=== PATIENT | female | born 1985 | race Caucasian/White ===

== ENCOUNTER 2021-01-22 07:36 | Inpatient (IN) ==
[2021-01-22] MEDS ORDERED: PENICILLIN G POTASSIUM 3 MU in DEXTROSE 5% 100 ML IV PRN (07:49)
[2021-01-22] MEDS ORDERED: OXYTOCIN 30 UNITS/500 ML BAG IV PRN ×3 (07:49→18:45)
[2021-01-22] MEDS ORDERED: DINOPROSTONE 10 MG INSERT PV ONE (08:00)
[2021-01-22] MEDS ORDERED: PATIENT'S HEIGHT AND/OR WEIGHT NEEDED SCH (08:00)
[2021-01-22] MEDS ORDERED: PENICILLIN G POTASSIUM 6 MU in DEXTROSE 5% 250 ML IV ONE (08:00)
[2021-01-22 08:18] LABS: Hematocrit (blood only) 36.7 % (37-47); Hemoglobin 12.2 g/dL (12.0-16.0); Mean Corpuscular Hemoglobin 29.3 pg (25-34); Mean Corpuscular Hgb Conc 33.2 g/dL (32-36); Mean Corpuscular Volume 88.2 fL (80-100); Mean Platelet Volume 11.2 fL (7.4-10.4); Platelet Count 274 K/uL (130-400); RDW Coefficient of Variation 15.6 % (11.5-14.5); RDW Standard Deviation 49.9 fL (36.4-46.3); Red Blood Count 4.16 M/uL (4.2-5.4)
[2021-01-22 08:51] LABS: Albumin Level 2.5 gm/dl (3.4-5.0); BUN Creatinine Ratio 12.4 (10-20); Calcium 9.4 mg/dl (8.5-10.1); Creatinine Clr Calc Pharmacy 130.6 ml/min; Est GFR (African American) 110.8 ml/min; Est GFR (Non-African American) 95.6 ml/min; Potassium 3.8 mmol/L (3.5-5.1)
[2021-01-22 08:54] LABS: Albumin Globulin Ratio 0.6 (0.9-2); Bilirubin,Total 0.2 mg/dl (0.2-1); Total Protein 6.5 gm/dl (6.4-8.2)
[2021-01-22] MEDS ORDERED: LABETALOL HCL 100 MG TAB PO ONE (10:02)
--- NOTE | 2021-01-22 10:02 | History & Physical Report ---
Date of Service January 22, 2021 Assessment & Plan (1) Elevated blood pressure affecting in third trimester, antepartum: (2) Pre-eclampsia added to pre-existing hypertension: Plan: 35-year-old -0-0-1 at 37 weeks of gestation scheduled for induction of labor for preeclampsia without severe features, has been labetalol 200 mg twice a day and now with proteinuria, Elevated blood pressures, asymptomatic, heart rate reassuring, GBS positive, Cervix unfavorable, Plan to admit, monitor, labs, Cervidil for cervical ripening and antihypertensives for blood pressure control. Admission and Anticipated Discharge Date Admission Date: January 22, 2021 History of Present Illness Primary Care Provider: Matilde Terry DO Patient is a 35-year-old -0-0-1 at 37 weeks of gestation who was scheduled for induction of labor for preeclampsia without severe features. Her blood pressures have been elevated and 24-hour urine protein was 371 MG on January 06, 2021. She has been on labetalol 200 mg twice a day and her liver enzymes and platelets have been normal. She denies headaches, change in her vision, nausea vomiting, epigastric or right upper quadrant pain. She denies chest pain, shortness of breath, fever or chills. She denies contractions, leakage of fluid, vaginal bleeding. She reports good movements. Her has been complicated by, 1) AMA, first trimester screening NIPT test was low risk 2) Hypothyroidism during , 3) preeclampsia without severe features, 4) Anxiety during , 5) obesity, class I, 6) GBS positive Allergies Allergy/AdvReac Type Severity Reaction Status Date / Time No Known Allergies Allergy Unverified 11/15/14 13:51 Home Medications Medication Instructions Recorded Confirmed Type Multivit/Min/Iron/Fol Ac/Pren 1 tab PO DAILY #0 tab 11/15/14 01/22/21 History ( Vitamin) Sertraline (Zoloft) 100 mg PO DAILY #0 tab 11/15/14 01/22/21 History labetalol 100 mg tablet 200 mg PO BID 01/07/21 01/22/21 History levothyroxine 25 mcg tablet 25 mcg PO DAILY 01/07/21 01/22/21 History Patient History Medical History (Updated 01/22/21 @ 10:00 by Sofy Merrill MD) Anxiety Depression Gestational hypertension Hypothyroid Migraines Obesity Vitamin D deficiency Surgical History History of mandibular surgery History of mandibular surgery Social History Smoking Status: Never smoker Hx Alcohol Use: No Hx Substance Use: No Preferred Language: Puerto Rican Communication Ability: Effective Beliefs That Will Affect Care: None marital status: marital status details: Adalberto Current Living Situation: Family Current Living Situation Comment: Lives with and 6 yo son current occupational status: employed current occupation: [employer] Other Information That Helps Us Care for You: No Feels Safe at Home: Yes Safety Concerns: Feels Safe At This Time Dental Care, Regularly: Yes OB History Full-term in 2015 by myself [employer] History History of STDs, denies any history of herpes, chlamydia, gonorrhea Review of Systems as per Subjective / HPI Physical Exam Constitutional: well developed and well nourished Comfortable, not in acute distress Gastrointestinal (Abdomen): normal bowel sounds, soft, nontender, no hepatosplenomegaly (Gravid) Genitourinary: normal external appearance OB Exam Abdomen: + vertex Manual OB Exam: + cervical dilation 2 cm, + cervical effacement 30% and + station high OB Exam Monitor Tracing: + external uterine monitor used and + category I Results & Data ([facility]) Vital Signs (Past 12 Hours) Vital Signs Temp Pulse Resp BP 01/22/21 08:52 86 159/90 H 01/22/21 08:50 82 181/102 H 01/22/21 08:08 36.5 C 20 01/22/21 07:50 36.5 C 83 20 164/103 H Laboratory Results Lab Results 01/22/21 01/22/21 01/22/21 Range/Units 07:54 07:54 08:07 WBC 7.90 (4.8-10.8) K/uL RBC 4.16 L (4.2-5.4) M/uL Hgb 12.2 (12.0-16.0) g/dL Hct 36.7 L (37-47) % MCV 88.2 (80-100) fL MCH 29.3 (25-34) pg MCHC 33.2 (32-36) g/dL RDW Std Deviation 49.9 H (36.4-46.3) fL RDW Coeff of Kyle 15.6 H (11.5-14.5) % Plt Count 274 (130-400) K/uL MPV 11.2 H (7.4-10.4) fL Sodium (136-145) mmol/L Potassium (3.5-5.1) mmol/L Chloride (98-107) mmol/L Carbon Dioxide (21-32) mmol/L Anion Gap (3-11) BUN (7-18) mg/dl Creatinine (0.6-1.2) mg/dl Est Cr Clr Drug Dosing ml/min Est GFR ( Amer) ml/min Est GFR (Non-Af Amer) ml/min BUN/Creatinine Ratio (10-20) Glucose (70-99) mg/dl Calcium (8.5-10.1) mg/dl Total Bilirubin (0.2-1) mg/dl AST (15-37) U/L ALT (12-78) U/L Alkaline Phosphatase (45-117) U/L Total Protein (6.4-8.2) gm/dl Albumin (3.4-5.0) gm/dl Globulin (2.5-4.0) gm/dl Albumin/Globulin Ratio (0.9-2) COVID-19 Eval Order Covid19 [facility] SARS-CoV-2, RNA, NAAT NEGATIVE (NEGATIVE) 01/22/21 Range/Units 08:07 WBC (4.8-10.8) K/uL RBC (4.2-5.4) M/uL Hgb (12.0-16.0) g/dL Hct (37-47) % MCV (80-100) fL MCH (25-34) pg MCHC (32-36) g/dL RDW Std Deviation (36.4-46.3) fL RDW Coeff of Kyle (11.5-14.5) % Plt Count (130-400) K/uL MPV (7.4-10.4) fL Sodium 136 (136-145) mmol/L Potassium 3.8 (3.5-5.1) mmol/L Chloride 108 H (98-107) mmol/L Carbon Dioxide 18 L (21-32) mmol/L Anion Gap 10.0 (3-11) BUN 10 (7-18) mg/dl Creatinine 0.79 (0.6-1.2) mg/dl Est Cr Clr Drug Dosing 130.6 ml/min Est GFR ( Amer) 110.8 ml/min Est GFR (Non-Af Amer) 95.6 ml/min BUN/Creatinine Ratio 12.4 (10-20) Glucose 137 H (70-99) mg/dl Calcium 9.4 (8.5-10.1) mg/dl Total Bilirubin 0.2 (0.2-1) mg/dl AST 18 (15-37) U/L ALT 27 (12-78) U/L Alkaline Phosphatase 132 H (45-117) U/L Total Protein 6.5 (6.4-8.2) gm/dl Albumin 2.5 L (3.4-5.0) gm/dl Globulin 4.0 (2.5-4.0) gm/dl Albumin/Globulin Ratio 0.6 L (0.9-2) COVID-19 Eval Order SARS-CoV-2, RNA, NAAT (NEGATIVE)
[2021-01-22] MEDS: LACTATED RINGER'S 1,000 ML IV PRN ×3 (11:28→18:34)
[2021-01-22] MEDS ORDERED: BUTORPHANOL TARTRATE 1 MG/ML VIAL IV ONE (12:02)
--- NOTE | 2021-01-22 12:23 | Obstetrical Progress Note ---
Date of Service January 22, 2021 Assessment & Plan Admission and Anticipated Discharge Date Admission Date: January 22, 2021 Subjective Patient is reevaluated. She has been feeling contractions every 1 to 2 minutes. she has been painful and desires pain medication. Vaginal exam, cervix is 3 to 4 cm dilated, 40% effaced, head at -3 station with a tight bag. Cervidil was removed due to hyperstimulation. heart rate is reassuring, Blood pressures are elevated, patient is asymptomatic. She received 200 mg of labetalol at home and another 100 mg here this morning. Plan to continue with labetalol and monitor closely. All questions were answered. Results & Data ([facility]) Vital Signs (Past 12 Hours) Vital Signs Temp Pulse Resp BP 01/22/21 12:02 83 180/92 H 01/22/21 11:07 84 18 154/92 H 01/22/21 10:49 80 174/96 H 01/22/21 10:48 36.8 C 20 01/22/21 09:53 81 162/96 H 01/22/21 08:52 86 159/90 H 01/22/21 08:50 82 181/102 H 01/22/21 08:08 36.5 C 20 01/22/21 07:50 36.5 C 83 20 164/103 H
[2021-01-22] MEDS ORDERED: LABETALOL HCL 200 MG TAB PO SCH (12:25)
[2021-01-22] MEDS ORDERED: hydrALAZINE HCL 20 MG/ML VIAL IV ONE (14:26)
[2021-01-22] MEDS ORDERED: SODIUM CHLORIDE 0.9% INJ 10 ML VIAL ONE (14:57)
[2021-01-22] MEDS ORDERED: BUPIVACAINE 0.25% 30 ML VIAL ONE (14:57)
[2021-01-22] MEDS ORDERED: ePHEDrine sulfate 50 MG/ML AMP ONE (14:57)
[2021-01-22] MEDS ORDERED: fentaNYL 2MCG/ML ROPIVACAINE 1.25MG/ML 100 ML BAG EPI ONE (14:58)
[2021-01-22] MEDS ORDERED: fentaNYL citrate 100 MCG/2 ML VIAL ONE (14:58)
[2021-01-22] MEDS ORDERED: NALOXONE HCL 1 MG in SODIUM CHLORIDE 0.9% 1000ML 1,000 ML IV PRN (15:12)
[2021-01-22] MEDS ORDERED: NALOXONE HCL 0.4 MG/1 ML VIAL/CARP IV PRN (15:12)
[2021-01-22] MEDS ORDERED: fentaNYL 2MCG/ML ROPIVACAINE 1.25MG/ML 100 ML BAG EPI PRN (15:12)
[2021-01-22] MEDS ORDERED: ePHEDrine sulfate 50 MG/ML AMP IV PRN (15:12)
[2021-01-22] MEDS ORDERED: diphenhydrAMINE 50 MG/ML VIAL IV PRN (15:12)
[2021-01-22] MEDS ORDERED: NALBUPHINE HCL INJ 10 MG/ML AMP IV PRN (15:12)
[2021-01-22] MEDS ORDERED: ONDANSETRON INJ 2 MG/ML 2 ML VIAL IV PRN (15:12)
--- NOTE | 2021-01-22 15:31 | Anesthesiology Consultation ---
Date of Service January 22, 2021 Assessment & Plan (1) Encounter for pre-operative examination: Chart Review Chart Review: Patient NOT seen in Pre Admission Testing and Acceptable Risk for Labor Epidural Consults Requested none History Height/Weight Height: 5 ft 10 in Weight: 109.316 kg Allergies Allergy/AdvReac Type Severity Reaction Status Date / Time No Known Allergies Allergy Unverified 11/15/14 13:51 Medications Home Medications Medication Instructions Recorded Confirmed Last Taken Multivit/Min/Iron/Fol Ac/Pren 1 tab PO DAILY #0 tab 11/15/14 01/22/21 01/21/21 ( Vitamin) Sertraline (Zoloft) 100 mg PO DAILY #0 tab 11/15/14 01/22/21 01/22/21 07:30 labetalol 100 mg tablet 200 mg PO BID 01/07/21 01/22/21 01/22/21 07:20 levothyroxine 25 mcg tablet 25 mcg PO DAILY 01/07/21 01/22/21 01/22/21 06:00 Active Medications Generic Name Dose Route Start Last Admin Trade Name Lennie PRN Reason Stop Dose Admin Lactated Ringer's 1,000 mls @ 150 mls/hr 01/22/21 07:49 01/22/21 15:10 Lr IV 01/24/21 07:48 999 mls/hr .[id number] PRN Administration L&D Protocol Protocol Penicillin G Potassium 3 mu/ 106 mls @ 100 mls/hr 01/22/21 07:49 01/22/21 14:49 Dextrose IV 02/01/21 07:48 100 mls/hr Q4H PRN Administration Give until delivery Labetalol HCl 200 mg 01/22/21 12:25 01/22/21 12:58 Labetalol Hcl 200 Mg Tab PO 02/21/21 12:24 200 mg TID TANVIR Administration Past Medical History Medical History Anxiety Depression Gestational hypertension Hypothyroid Migraines Obesity Vitamin D deficiency Exercise / Class Metabolic Activity II 4-5 Yardwork/Stairs/Walk up hill Past Surgical History Surgical History History of mandibular surgery History of mandibular surgery Past Anesthesia History No Hx of Anesthesia Complications and No Family Hx of Anesthesia Complications History of PONV No Hx of PONV and No Hx of Motion Sickness Social History Smoking Status: Never smoker Hx Alcohol Use: No Hx Substance Use: No Physical Exam Vital Signs Last Vital Signs Temp 36.5 C 01/22/21 14:55 Pulse 75 01/22/21 15:10 Resp 20 01/22/21 14:55 BP 169/91 H 01/22/21 15:09 Pulse Ox 98 01/22/21 15:10 Testing Laboratory Results 01/22/21 08:07 01/22/21 08:07
[2021-01-22] MEDS ORDERED: NIFEdipine EXTENDED REL 30 MG TABCR PO STA (17:10)
[2021-01-22] MEDS ORDERED: MAG SULFATE 4GM BOLUS FROM BAG IV ONE (17:14)
--- NOTE | 2021-01-22 17:14 | Obstetrical Progress Note ---
Date of Service January 22, 2021 Assessment & Plan Admission and Anticipated Discharge Date Admission Date: January 22, 2021 Subjective She received epidural and comfortable now. She felt a gush of fluid leakage earlier. Vaginal exam, perineum and under sheets are wet, cervix is 45 cm dilated, 50% effaced head at -3 station, unable to feel amniotic bag which was tight earlier. I can only feel scalp skin suggesting spontaneous rupture of membranes. Patient has received 2 doses of penicillin already. Blood pressures are still elevated despite labetalol p.o., IV hydralazine. Plan to start Procardia XL and IV magnesium for seizure prophylaxis. Continue to monitor closely. Results & Data ([facility]) Vital Signs (Past 12 Hours) Vital Signs Temp Pulse Resp BP Pulse Ox 01/22/21 17:06 71 168/92 H 01/22/21 17:05 36.8 C 75 18 97 01/22/21 17:00 70 99 01/22/21 16:55 66 98 01/22/21 16:50 64 173/85 H 98 01/22/21 16:45 65 98 01/22/21 16:40 72 98 01/22/21 16:36 64 159/81 H 01/22/21 16:35 65 98 01/22/21 16:30 65 98 01/22/21 16:25 66 98 01/22/21 16:20 71 18 142/69 H 98 01/22/21 16:15 67 98 01/22/21 16:10 68 98 01/22/21 16:05 67 98 01/22/21 16:02 67 18 155/90 H 01/22/21 16:00 67 18 156/89 H 98 01/22/21 15:58 66 150/90 H 01/22/21 15:56 70 18 156/91 H 01/22/21 15:55 66 98 01/22/21 15:54 66 156/91 H 01/22/21 15:52 67 156/89 H 01/22/21 15:50 68 18 159/88 H 99 01/22/21 15:49 18 01/22/21 15:48 71 18 162/93 H 01/22/21 15:46 68 18 157/92 H 01/22/21 15:45 70 99 01/22/21 15:44 69 18 156/86 H 01/22/21 15:43 68 18 156/89 H 01/22/21 15:40 68 143/66 H 99 01/22/21 15:38 67 18 159/76 H 01/22/21 15:36 68 155/72 H 01/22/21 15:35 69 99 01/22/21 15:34 72 164/87 H 01/22/21 15:32 73 18 151/83 H 01/22/21 15:30 69 161/85 H 98 01/22/21 15:28 76 168/88 H 01/22/21 15:25 76 98 01/22/21 15:23 76 176/89 H 01/22/21 15:20 76 98 01/22/21 15:15 74 98 01/22/21 15:10 75 98 01/22/21 15:09 75 169/91 H 01/22/21 15:05 72 98 01/22/21 15:00 72 97 01/22/21 14:55 36.5 C 75 20 98 01/22/21 14:50 72 98 01/22/21 14:48 75 160/107 H 01/22/21 14:45 76 98 01/22/21 14:20 79 167/97 H 01/22/21 13:43 77 169/103 H 01/22/21 12:58 74 176/98 H 01/22/21 12:28 85 20 184/87 H 01/22/21 12:02 83 20 180/92 H 01/22/21 11:07 84 18 154/92 H 01/22/21 10:49 80 174/96 H 01/22/21 10:48 36.8 C 20 01/22/21 09:53 81 162/96 H 01/22/21 08:52 86 159/90 H 01/22/21 08:50 82 181/102 H 01/22/21 08:08 36.5 C 20 01/22/21 07:50 36.5 C 83 20 164/103 H
[2021-01-22] MEDS ORDERED: MAGNESIUM SULFATE / WTR 40 GM/1,000 ML BAG IV SCH (17:15)
[2021-01-22 17:39] LABS: Basophils # (auto) 0.02 K/uL (0-0.2); Basophils % (auto) 0.2 %; Eosinophils # (auto) 0.06 K/uL (0-0.5); Eosinophils % (auto) 0.5 %; Hematocrit (blood only) 36.6 % (37-47); Hemoglobin 12.5 g/dL (12.0-16.0); Immature Granulocytes # (auto) 0.02 K/uL (0.00-0.02); Immature Granulocytes % (auto) 0.2 %; Lymphocytes % (auto) 12.9 %; Mean Corpuscular Hemoglobin 29.7 pg (25-34); Mean Corpuscular Hgb Conc 34.2 g/dL (32-36); Mean Corpuscular Volume 86.9 fL (80-100); Mean Platelet Volume 11.3 fL (7.4-10.4); Monocytes # (auto) 0.97 K/uL (0.11-0.59); Monocytes % (auto) 8.3 %; Neutrophils # (auto) 9.07 K/uL (1.4-6.5); Neutrophils % (auto) 77.9 %; Platelet Count 290 K/uL (130-400); RDW Standard Deviation 49.9 fL (36.4-46.3); Red Blood Count 4.21 M/uL (4.2-5.4); White Blood Count 11.64 K/uL (4.8-10.8)
[2021-01-22 18:03] LABS: Albumin Level 2.5 gm/dl (3.4-5.0); BUN Creatinine Ratio 13.4 (10-20); Calcium 8.6 mg/dl (8.5-10.1); Creatinine Clr Calc Pharmacy 143.3 ml/min; Potassium 4.3 mmol/L (3.5-5.1)
[2021-01-22 18:06] LABS: Albumin Globulin Ratio 0.6 (0.9-2); Bilirubin,Total 0.2 mg/dl (0.2-1); Globulin 3.9 gm/dl (2.5-4.0); Total Protein 6.4 gm/dl (6.4-8.2)
[2021-01-22 18:13] LABS: Appearance Urine Clear (Clear); Bacteria Urine Automated Negative (Negative); Bilirubin Urine Negative (Negative); Blood Urine 1+ (Negative); Cast Urine Automated 0 /lpf (0-5); Color Urine Yellow; Epithelial Cell Urine Auto 20-30 /lpf (0-5); Glucose Urine UA Negative (Negative); Ketones Urine Negative (Negative); Leukocyte Esterase Urine Negative (Negative); Nitrite Urine Negative (Negative); Protein Urine 1+ (Negative); Specific Gravity Urine 1.013 (1.000-1.030); Urobilinogen Urine Negative (Negative)
[2021-01-22 18:25] LABS: Creatinine Urine Random 56.4 mg/dl; Protein Creatinine Ratio Urine 1.2 (0-0.2); Total Protein Urine Random 67.9 mg/dl (0-11.9)
[2021-01-22] MEDS ORDERED: oxyCODONE/ACETAMINOPHEN 5mg/325mg TAB PO PRN (18:45)
[2021-01-22] MEDS ORDERED: SUPERCREAM 0.870% 15 GM JAR EXT PRN (18:45)
[2021-01-22] MEDS ORDERED: HYDROCORTISONE ACETATE 25 MG SUPP PR PRN (18:45)
[2021-01-22] MEDS ORDERED: MEASLES, MUMPS & RUBELLA VIRUS VIAL SQ ONE (18:45)
[2021-01-22] MEDS ORDERED: DIPHTHERIA/TETANUS/PERTUSSIS 0.5 ML SYR/VIAL IM ONE (18:45)
--- NOTE | 2021-01-22 19:31 | Delivery Summary ---
Vaginal Delivery Summary Date of Service January 22, 2021 Vaginal Delivery Summary He was found to be fully dilated and desire to push she pushed through 3 contractions and delivered to head as separate posterior position, facing up with a loop of cord around upper chest suggesting cord compression during the minutes of second stage. Shoulders came right after without any traction and baby was handed off to the mother by mouth and nose were suctioned and cord was clamped x2 and cut. The baby was taken off by the nursery team. Cord blood was obtained. Vagina and perineum were checked for lacerations there was only a small first-degree laceration at the posterior fourchette. Rest of the vagina was intact. This was repaired with 2-0 Vicryl with [id number] stitches x2 and excellent hemostasis achieved. The placenta was found to be in the vagina, delivered spontaneously as intact and complete. The uterus was explored and found to be empty. The lower segment was cleared of all clots and debris's and fundus was firm, EBL was 200 mL. Mom and baby tolerated procedure well sponge lap needle count was correct x2. Baby was a viable female , Apgars were 4 and 9 at 1st and 5th minutes. See nursing note for details. No complications happened and I was present during whole procedure. Mother was on IV magnesium for seizure prophylaxis, she denied headaches, change in her vision, nausea vomiting, chest pain shortness of breath. She tolerated my IV magnesium well and no signs or symptoms of high blood pressures. Plan to continue with IV magnesium, Bell catheter, p.o. labetalol and Procardia and monitor closely.
[2021-01-22] MEDS: LABETALOL HCL 200 MG TAB PO SCH (19:52)
--- NOTE | 2021-01-22 20:36 | Anesthesia Procedure Note ---
Date of Service January 22, 2021 Anesthesia Post Epidural Note Vital Signs Vital Signs: Temp Pulse Resp BP Pulse Ox 36.8 C 87 18 149/78 H 98 01/22/21 17:05 01/22/21 20:35 01/22/21 20:25 01/22/21 20:25 01/22/21 20:35 Notes Mental Status: alert / awake / arousable and participated in evaluation Patient Amnestic to Procedure: No Nausea / Vomiting: adequately controlled Pain: adequately controlled Airway Patency, RR, SpO2: stable & adequate BP & HR: stable & adequate Hydration State: stable & adequate Neuraxial Anesthesia: was administered and sensory block resolved Anesthetic Complications: no major complications apparent and Pt Satisfied with anesthetic care Epidural: Removed without complications and With tip intact
[2021-01-22] MEDS: DOCUSATE SODIUM 100 MG CAP PO SCH (21:39)
[2021-01-23] MEDS: IBUPROFEN 600 MG TAB PO PRN ×3 (02:28→15:33)
[2021-01-23] MEDS: LACTATED RINGER'S 1,000 ML IV PRN ×2 (04:29→14:26)
[2021-01-23] MEDS: LEVOTHYROXINE SODIUM 25 MCG TABLET PO SCH (06:05)
[2021-01-23 06:21] LABS: Hematocrit (blood only) 36.7 % (37-47); Hemoglobin 12.2 g/dL (12.0-16.0); Mean Corpuscular Hgb Conc 33.2 g/dL (32-36); Mean Corpuscular Volume 87.2 fL (80-100); Mean Platelet Volume 11.1 fL (7.4-10.4); Platelet Count 276 K/uL (130-400); RDW Coefficient of Variation 15.9 % (11.5-14.5); RDW Standard Deviation 49.9 fL (36.4-46.3); Red Blood Count 4.21 M/uL (4.2-5.4); White Blood Count 11.55 K/uL (4.8-10.8)
[2021-01-23] MEDS: SERTRALINE HCL 100 MG TABLET PO SCH (08:01)
[2021-01-23] MEDS: PRENATAL VITAMIN 1 TAB PO SCH (08:01)
[2021-01-23] MEDS: DOCUSATE SODIUM 100 MG CAP PO SCH ×2 (08:01→20:50)
[2021-01-23] MEDS: FERROUS SULFATE 325 MG TAB PO SCH (08:01)
[2021-01-23] MEDS: LABETALOL HCL 200 MG TAB PO SCH ×2 (08:01→20:50)
[2021-01-23] MEDS: ACETAMINOPHEN 325 MG TAB PO PRN (08:11)
--- NOTE | 2021-01-23 10:33 | Obstetrical Progress Note ---
Date of Service January 23, 2021 Subjective Ambulation: ambulating normally Voiding: no voiding problems Passing Gas:: Yes Diet Tolerance:: regular diet Feeding Type:: breast feeding Current Pain Level(1-10): 0 occasional headache, denies blurred vision or dizziness Physical Exam Constitutional WD/WN, vitals as above comfortable Skin no rashes, warm and dry Neurologic patellar DTR's 2+ bilat, sensation intact Psychiatric Orientation: alert and oriented x 3 Results & Data ([facility]) Vital Signs (Past 12 Hours) Vital Signs Temp Pulse Resp BP Pulse Ox 01/23/21 10:26 76 145/86 H 01/23/21 10:25 80 96 01/23/21 10:20 76 95 01/23/21 10:15 75 96 01/23/21 10:10 76 96 01/23/21 10:05 75 97 01/23/21 10:00 77 96 01/23/21 09:56 76 144/83 H 01/23/21 09:55 76 96 01/23/21 09:50 77 96 01/23/21 09:45 83 97 01/23/21 09:40 82 96 01/23/21 09:35 87 96 01/23/21 09:30 82 97 01/23/21 09:26 83 160/89 H 01/23/21 09:25 85 96 01/23/21 09:20 85 96 01/23/21 09:15 74 97 01/23/21 09:10 80 97 01/23/21 09:05 78 97 01/23/21 09:00 85 97 01/23/21 08:56 82 185/93 H 01/23/21 08:55 86 97 01/23/21 08:50 75 99 01/23/21 08:38 72 184/105 H 01/23/21 08:36 70 99 01/23/21 08:31 70 99 01/23/21 08:26 71 192/107 H 99 01/23/21 08:21 71 99 01/23/21 08:16 74 100 01/23/21 08:11 75 99 01/23/21 08:06 71 99 01/23/21 08:01 71 100 01/23/21 08:00 36.7 C 69 20 172/91 H 01/23/21 07:56 66 98 01/23/21 07:51 68 99 09/09/21 07:46 70 99 01/23/21 07:41 72 99 01/23/21 07:40 68 169/90 H 01/23/21 07:36 71 96 01/23/21 07:31 67 98 01/23/21 07:26 71 181/94 H 99 01/23/21 07:21 78 98 01/23/21 07:16 72 98 01/23/21 07:11 71 98 01/23/21 07:06 71 98 01/23/21 07:01 73 98 01/23/21 07:00 18 01/23/21 06:56 68 163/90 H 98 01/23/21 06:51 71 97 01/23/21 06:46 70 97 01/23/21 06:41 70 98 01/23/21 06:40 18 01/23/21 06:36 70 97 01/23/21 06:31 66 98 01/23/21 06:26 70 18 147/85 H 97 01/23/21 06:21 68 97 01/23/21 06:16 69 98 01/23/21 06:11 68 98 01/23/21 06:06 69 98 01/23/21 06:01 80 99 01/23/21 05:57 78 146/82 H 01/23/21 05:56 75 97 01/23/21 05:51 76 98 01/23/21 05:46 75 98 01/23/21 05:41 76 98 01/23/21 05:36 77 98 01/23/21 05:31 72 97 01/23/21 05:26 72 18 155/90 H 98 01/23/21 05:21 74 97 01/23/21 05:16 73 97 01/23/21 05:11 73 97 01/23/21 05:06 75 97 01/23/21 05:01 74 97 01/23/21 04:56 75 131/92 98 01/23/21 04:51 71 97 01/23/21 04:46 75 97 01/23/21 04:41 74 97 01/23/21 04:36 72 97 01/23/21 04:31 72 97 01/23/21 04:26 77 18 136/71 98 01/23/21 04:21 75 97 01/23/21 04:16 75 96 01/23/21 04:11 74 96 01/23/21 04:06 75 96 01/23/21 04:01 75 97 01/23/21 03:56 78 136/74 96 01/23/21 03:51 75 96 01/23/21 03:46 75 96 01/23/21 03:41 71 96 01/23/21 03:36 77 96 01/23/21 03:34 73 94 01/23/21 03:31 72 96 01/23/21 03:26 36.7 C 76 18 129/69 96 01/23/21 03:21 75 96 01/23/21 03:16 73 96 01/23/21 03:11 78 96 01/23/21 03:06 75 97 01/23/21 03:01 75 97 01/23/21 02:56 75 144/78 H 97 01/23/21 02:51 74 97 01/23/21 02:46 75 97 01/23/21 02:41 83 99 01/23/21 02:40 18 01/23/21 02:36 78 99 01/23/21 02:31 80 97 01/23/21 02:26 81 161/89 H 98 01/23/21 02:21 82 96 01/23/21 02:16 74 98 01/23/21 02:11 72 97 01/23/21 02:06 71 98 01/23/21 02:01 75 98 01/23/21 01:56 73 151/88 H 99 01/23/21 01:51 74 97 01/23/21 01:46 72 98 01/23/21 01:41 74 97 01/23/21 01:36 73 97 01/23/21 01:31 74 97 01/23/21 01:26 79 18 150/84 H 99 01/23/21 01:21 77 97 01/23/21 01:16 78 97 01/23/21 01:11 78 97 01/23/21 01:06 76 98 01/23/21 01:01 76 97 01/23/21 00:57 78 161/81 H 01/23/21 00:56 94 H 97 01/23/21 00:51 77 97 01/23/21 00:46 76 97 01/23/21 00:41 77 97 01/23/21 00:36 79 96 09/09/21 00:31 77 97 01/23/21 00:26 79 148/80 H 97 01/23/21 00:25 18 01/23/21 00:21 76 97 01/23/21 00:16 79 97 01/23/21 00:11 80 97 01/23/21 00:06 78 97 01/23/21 00:01 80 97 01/22/21 23:56 77 153/76 H 97 01/22/21 23:51 82 97 01/22/21 23:46 77 97 01/22/21 23:41 78 97 01/22/21 23:36 78 98 01/22/21 23:31 79 97 01/22/21 23:26 83 97 01/22/21 23:25 36.8 C 78 18 149/77 H 01/22/21 23:21 85 98 01/22/21 23:16 87 97 01/22/21 23:11 82 98 01/22/21 23:10 78 152/82 H 01/22/21 23:06 83 97 01/22/21 23:01 85 97 01/22/21 22:56 84 97 01/22/21 22:55 82 148/83 H 01/22/21 22:51 84 98 01/22/21 22:46 83 98 01/22/21 22:41 82 98 01/22/21 22:40 82 145/78 H 01/22/21 22:36 80 98 Laboratory Results 01/22/21 01/22/21 01/22/21 07:54 07:54 08:07 WBC 7.90 RBC 4.16 L Hgb 12.2 Hct 36.7 L MCV 88.2 MCH 29.3 MCHC 33.2 RDW Std Deviation 49.9 H RDW Coeff of Kyle 15.6 H Plt Count 274 MPV 11.2 H Immature Gran % (Auto) Neut % (Auto) Lymph % (Auto) [place] % (Auto) Eos % (Auto) Baso % (Auto) Neut # (Auto) Lymph # (Auto) [place] # (Auto) Eos # (Auto) Baso # (Auto) Immature Gran # (Auto) Sodium Potassium Chloride Carbon Dioxide Anion Gap BUN Creatinine Est Cr Clr Drug Dosing Est GFR ( Amer) Est GFR (Non-Af Amer) BUN/Creatinine Ratio Glucose Calcium Total Bilirubin AST ALT Alkaline Phosphatase Lactate Dehydrogenase Total Protein Albumin Globulin Albumin/Globulin Ratio Urine Color Urine Appearance Urine pH Ur Specific Pyrites Urine Protein Urine Glucose (UA) Urine Ketones Urine Blood Urine Nitrite Urine Bilirubin Urine Urobilinogen Ur Leukocyte Esterase Urine WBC (Auto) Urine RBC (Auto) U Hyaline Cast (Auto) U Epithel Cells (Auto) Urine Bacteria (Auto) Ur Random Creatinine U Random Total Protein Protein/Creatinin Ratio COVID-19 Eval Order Covid19 IDNow [facility] SARS-CoV-2, RNA, NAAT NEGATIVE 01/22/21 01/22/21 01/22/21 08:07 17:29 17:29 WBC 11.64 H RBC 4.21 Hgb 12.5 Hct 36.6 L MCV 86.9 MCH 29.7 MCHC 34.2 RDW Std Deviation 49.9 H RDW Coeff of Kyle 16.0 H Plt Count 290 MPV 11.3 H Immature Gran % (Auto) 0.2 Neut % (Auto) 77.9 Lymph % (Auto) 12.9 [place] % (Auto) 8.3 Eos % (Auto) 0.5 Baso % (Auto) 0.2 Neut # (Auto) 9.07 H Lymph # (Auto) 1.50 [place] # (Auto) 0.97 H Eos # (Auto) 0.06 Baso # (Auto) 0.02 Immature Gran # (Auto) 0.02 Sodium 136 138 Potassium 3.8 4.3 Chloride 108 H 110 H Carbon Dioxide 18 L 18 L Anion Gap 10.0 10.0 BUN 10 10 Creatinine 0.79 0.72 Est Cr Clr Drug Dosing 130.6 143.3 Est GFR ( Amer) 110.8 124.0 Est GFR (Non-Af Amer) 95.6 107.0 BUN/Creatinine Ratio 12.4 13.4 Glucose 137 H 81 Calcium 9.4 8.6 Total Bilirubin 0.2 0.2 AST 18 16 ALT 27 26 Alkaline Phosphatase 132 H 135 H Lactate Dehydrogenase Total Protein 6.5 6.4 Albumin 2.5 L 2.5 L Globulin 4.0 3.9 Albumin/Globulin Ratio 0.6 L 0.6 L Urine Color Urine Appearance Urine pH Ur Specific Pyrites Urine Protein Urine Glucose (UA) Urine Ketones Urine Blood Urine Nitrite Urine Bilirubin Urine Urobilinogen Ur Leukocyte Esterase Urine WBC (Auto) Urine RBC (Auto) U Hyaline Cast (Auto) U Epithel Cells (Auto) Urine Bacteria (Auto) Ur Random Creatinine U Random Total Protein Protein/Creatinin Ratio COVID-19 Eval Order SARS-CoV-2, RNA, NAAT 01/22/21 01/22/21 01/22/21 17:29 17:56 17:56 WBC RBC Hgb Hct MCV MCH MCHC RDW Std Deviation RDW Coeff of Kyle Plt Count MPV Immature Gran % (Auto) Neut % (Auto) Lymph % (Auto) [place] % (Auto) Eos % (Auto) Baso % (Auto) Neut # (Auto) Lymph # (Auto) [place] # (Auto) Eos # (Auto) Baso # (Auto) Immature Gran # (Auto) Sodium Potassium Chloride Carbon Dioxide Anion Gap BUN Creatinine Est Cr Clr Drug Dosing Est GFR ( Amer) Est GFR (Non-Af Amer) BUN/Creatinine Ratio Glucose Calcium Total Bilirubin AST ALT Alkaline Phosphatase Lactate Dehydrogenase 165 Total Protein Albumin Globulin Albumin/Globulin Ratio Urine Color Yellow Urine Appearance Clear Urine pH 7.0 Ur Specific Pyrites 1.013 Urine Protein 1+ H Urine Glucose (UA) Negative Urine Ketones Negative Urine Blood 1+ H Urine Nitrite Negative Urine Bilirubin Negative Urine Urobilinogen Negative Ur Leukocyte Esterase Negative Urine WBC (Auto) 1-5 Urine RBC (Auto) 10-30 H U Hyaline Cast (Auto) 0 U Epithel Cells (Auto) 20-30 H Urine Bacteria (Auto) Negative Ur Random Creatinine 56.4 U Random Total Protein 67.9 H Protein/Creatinin Ratio 1.2 H COVID-19 Eval Order SARS-CoV-2, RNA, NAAT 01/23/21 06:04 WBC 11.55 H RBC 4.21 Hgb 12.2 Hct 36.7 L MCV 87.2 MCH 29.0 MCHC 33.2 RDW Std Deviation 49.9 H RDW Coeff of Kyle 15.9 H Plt Count 276 MPV 11.1 H Immature Gran % (Auto) Neut % (Auto) Lymph % (Auto) [place] % (Auto) Eos % (Auto) Baso % (Auto) Neut # (Auto) Lymph # (Auto) [place] # (Auto) Eos # (Auto) Baso # (Auto) Immature Gran # (Auto) Sodium Potassium Chloride Carbon Dioxide Anion Gap BUN Creatinine Est Cr Clr Drug Dosing Est GFR ( Amer) Est GFR (Non-Af Amer) BUN/Creatinine Ratio Glucose Calcium Total Bilirubin AST ALT Alkaline Phosphatase Lactate Dehydrogenase Total Protein Albumin Globulin Albumin/Globulin Ratio Urine Color Urine Appearance Urine pH Ur Specific Pyrites Urine Protein Urine Glucose (UA) Urine Ketones Urine Blood Urine Nitrite Urine Bilirubin Urine Urobilinogen Ur Leukocyte Esterase Urine WBC (Auto) Urine RBC (Auto) U Hyaline Cast (Auto) U Epithel Cells (Auto) Urine Bacteria (Auto) Ur Random Creatinine U Random Total Protein Protein/Creatinin Ratio COVID-19 Eval Order SARS-CoV-2, RNA, NAAT
[2021-01-23] MEDS ORDERED: ONDANSETRON INJ 2 MG/ML 2 ML VIAL IV ONE (16:49)
[2021-01-23] MEDS ORDERED: bisacodyL 5 MG TABEC PO SCH (20:00)
[2021-01-23] MEDS: BENZOCAINE 20% AER SPR 82.5 GM CAN EXT PRN (20:57)
[2021-01-23] MEDS ORDERED: NIFEdipine EXTENDED REL 30 MG TABCR PO SCH (23:00)
[2021-01-24] MEDS: IBUPROFEN 600 MG TAB PO PRN ×2 (00:12→06:38)
[2021-01-24] MEDS ORDERED: LABETALOL HCL 100 MG TAB PO ONE (05:42)
[2021-01-24] MEDS ORDERED: bisacodyL 10 MG SUPP PR PRN (06:00)
[2021-01-24 06:23] LABS: Hematocrit (blood only) 34.4 % (37-47); Hemoglobin 11.1 g/dL (12.0-16.0)
[2021-01-24] MEDS: LEVOTHYROXINE SODIUM 25 MCG TABLET PO SCH (06:38)
[2021-01-24] MEDS: PRENATAL VITAMIN 1 TAB PO SCH (07:39)
[2021-01-24] MEDS: FERROUS SULFATE 325 MG TAB PO SCH (07:39)
[2021-01-24] MEDS: DOCUSATE SODIUM 100 MG CAP PO SCH ×2 (07:39→20:19)
[2021-01-24 08:04] LABS: Basophils # (auto) 0.02 K/uL (0-0.2); Basophils % (auto) 0.2 %; Eosinophils # (auto) 0.16 K/uL (0-0.5); Eosinophils % (auto) 1.7 %; Hematocrit (blood only) 32.7 % (37-47); Hemoglobin 10.7 g/dL (12.0-16.0); Immature Granulocytes # (auto) 0.02 K/uL (0.00-0.02); Immature Granulocytes % (auto) 0.2 %; Lymphocytes # (auto) 2.06 K/uL (1.2-3.4); Mean Corpuscular Hemoglobin 29.4 pg (25-34); Mean Corpuscular Hgb Conc 32.7 g/dL (32-36); Mean Corpuscular Volume 89.8 fL (80-100); Mean Platelet Volume 10.7 fL (7.4-10.4); Monocytes # (auto) 0.43 K/uL (0.11-0.59); Monocytes % (auto) 4.6 %; Neutrophils # (auto) 6.69 K/uL (1.4-6.5); Neutrophils % (auto) 71.3 %; Platelet Count 256 K/uL (130-400); RDW Coefficient of Variation 16.2 % (11.5-14.5); RDW Standard Deviation 53.3 fL (36.4-46.3); Red Blood Count 3.64 M/uL (4.2-5.4); White Blood Count 9.38 K/uL (4.8-10.8)
--- NOTE | 2021-01-24 08:27 | Obstetrical Progress Note ---
Date of Service January 24, 2021 Assessment & Plan Admission and Anticipated Discharge Date Admission Date: January 22, 2021 Subjective Patient is seen and examined. She feels well, no complaints. Ambulating without dizziness Voiding without difficulty Tolerating regular diet with out N&V Bleeding is minimal No KYLE/ Change in vision/ fever/ chills/ CP/ SOB/ N&V/ Leg pain Breast and bottle feeding without problems Vital Signs Temp Pulse Resp BP 01/24/21 06:27 96 H 178/107 H 01/24/21 05:30 36.7 C 83 18 182/116 H 01/24/21 02:10 75 159/95 H 01/24/21 00:15 36.8 C 76 18 166/103 H 01/23/21 22:20 153/94 H BP this mornin/107 LA 149/97 RA Lab Results 01/22/21 01/22/21 01/22/21 Range/Units 07:54 07:54 08:07 WBC 7.90 (4.8-10.8) K/uL RBC 4.16 L (4.2-5.4) M/uL Hgb 12.2 (12.0-16.0) g/dL Hct 36.7 L (37-47) % MCV 88.2 (80-100) fL MCH 29.3 (25-34) pg MCHC 33.2 (32-36) g/dL RDW Std Deviation 49.9 H (36.4-46.3) fL RDW Coeff of Kyle 15.6 H (11.5-14.5) % Plt Count 274 (130-400) K/uL MPV 11.2 H (7.4-10.4) fL Immature Gran % (Auto) % Neut % (Auto) % Lymph % (Auto) % Snyder % (Auto) % Eos % (Auto) % Baso % (Auto) % Neut # (Auto) (1.4-6.5) K/uL Lymph # (Auto) (1.2-3.4) K/uL Snyder # (Auto) (0.11-0.59) K/uL Eos # (Auto) (0-0.5) K/uL Baso # (Auto) (0-0.2) K/uL Immature Gran # (Auto) (0.00-0.02) K/uL Sodium (136-145) mmol/L Potassium (3.5-5.1) mmol/L Chloride (98-107) mmol/L Carbon Dioxide (21-32) mmol/L Anion Gap (3-11) BUN (7-18) mg/dl Creatinine (0.6-1.2) mg/dl Est Cr Clr Drug Dosing ml/min Est GFR ( Amer) ml/min Est GFR (Non-Af Amer) ml/min BUN/Creatinine Ratio (10-20) Glucose (70-99) mg/dl Calcium (8.5-10.1) mg/dl Total Bilirubin (0.2-1) mg/dl AST (15-37) U/L ALT (12-78) U/L Alkaline Phosphatase (45-117) U/L Lactate Dehydrogenase (84-246) U/L Total Protein (6.4-8.2) gm/dl Albumin (3.4-5.0) gm/dl Globulin (2.5-4.0) gm/dl Albumin/Globulin Ratio (0.9-2) Urine Color Urine Appearance (Clear) Urine pH (4.5-7.5) Ur Specific [place] (1.000-1.030) Urine Protein (Negative) Urine Glucose (UA) (Negative) Urine Ketones (Negative) Urine Blood (Negative) Urine Nitrite (Negative) Urine Bilirubin (Negative) Urine Urobilinogen (Negative) Ur Leukocyte Esterase (Negative) Urine WBC (Auto) (0-5) /hpf Urine RBC (Auto) (0-4) /hpf U Hyaline Cast (Auto) (0-5) /lpf U Epithel Cells (Auto) (0-5) /lpf Urine Bacteria (Auto) (Negative) Ur Random Creatinine mg/dl U Random Total Protein (0-11.9) mg/dl Protein/Creatinin Ratio (0-0.2) COVID-19 Eval Order Covid19 IDNow [facility] SARS-CoV-2, RNA, NAAT NEGATIVE (NEGATIVE) 01/22/21 01/22/21 01/22/21 Range/Units 08:07 17:29 17:29 WBC 11.64 H (4.8-10.8) K/uL RBC 4.21 (4.2-5.4) M/uL Hgb 12.5 (12.0-16.0) g/dL Hct 36.6 L (37-47) % MCV 86.9 (80-100) fL MCH 29.7 (25-34) pg MCHC 34.2 (32-36) g/dL RDW Std Deviation 49.9 H (36.4-46.3) fL RDW Coeff of Kyle 16.0 H (11.5-14.5) % Plt Count 290 (130-400) K/uL MPV 11.3 H (7.4-10.4) fL Immature Gran % (Auto) 0.2 % Neut % (Auto) 77.9 % Lymph % (Auto) 12.9 % Snyder % (Auto) 8.3 % Eos % (Auto) 0.5 % Baso % (Auto) 0.2 % Neut # (Auto) 9.07 H (1.4-6.5) K/uL Lymph # (Auto) 1.50 (1.2-3.4) K/uL Snyder # (Auto) 0.97 H (0.11-0.59) K/uL Eos # (Auto) 0.06 (0-0.5) K/uL Baso # (Auto) 0.02 (0-0.2) K/uL Immature Gran # (Auto) 0.02 (0.00-0.02) K/uL Sodium 136 138 (136-145) mmol/L Potassium 3.8 4.3 (3.5-5.1) mmol/L Chloride 108 H 110 H (98-107) mmol/L Carbon Dioxide 18 L 18 L (21-32) mmol/L Anion Gap 10.0 10.0 (3-11) BUN 10 10 (7-18) mg/dl Creatinine 0.79 0.72 (0.6-1.2) mg/dl Est Cr Clr Drug Dosing 130.6 143.3 ml/min Est GFR ( Amer) 110.8 124.0 ml/min Est GFR (Non-Af Amer) 95.6 107.0 ml/min BUN/Creatinine Ratio 12.4 13.4 (10-20) Glucose 137 H 81 (70-99) mg/dl Calcium 9.4 8.6 (8.5-10.1) mg/dl Total Bilirubin 0.2 0.2 (0.2-1) mg/dl AST 18 16 (15-37) U/L ALT 27 26 (12-78) U/L Alkaline Phosphatase 132 H 135 H (45-117) U/L Lactate Dehydrogenase (84-246) U/L Total Protein 6.5 6.4 (6.4-8.2) gm/dl Albumin 2.5 L 2.5 L (3.4-5.0) gm/dl Globulin 4.0 3.9 (2.5-4.0) gm/dl Albumin/Globulin Ratio 0.6 L 0.6 L (0.9-2) Urine Color Urine Appearance (Clear) Urine pH (4.5-7.5) Ur Specific [place] (1.000-1.030) Urine Protein (Negative) Urine Glucose (UA) (Negative) Urine Ketones (Negative) Urine Blood (Negative) Urine Nitrite (Negative) Urine Bilirubin (Negative) Urine Urobilinogen (Negative) Ur Leukocyte Esterase (Negative) Urine WBC (Auto) (0-5) /hpf Urine RBC (Auto) (0-4) /hpf U Hyaline Cast (Auto) (0-5) /lpf U Epithel Cells (Auto) (0-5) /lpf Urine Bacteria (Auto) (Negative) Ur Random Creatinine mg/dl U Random Total Protein (0-11.9) mg/dl Protein/Creatinin Ratio (0-0.2) COVID-19 Eval Order SARS-CoV-2, RNA, NAAT (NEGATIVE) 01/22/21 01/22/21 01/22/21 Range/Units 17:29 17:56 17:56 WBC (4.8-10.8) K/uL RBC (4.2-5.4) M/uL Hgb (12.0-16.0) g/dL Hct (37-47) % MCV (80-100) fL MCH (25-34) pg MCHC (32-36) g/dL RDW Std Deviation (36.4-46.3) fL RDW Coeff of Kyle (11.5-14.5) % Plt Count (130-400) K/uL MPV (7.4-10.4) fL Immature Gran % (Auto) % Neut % (Auto) % Lymph % (Auto) % Snyder % (Auto) % Eos % (Auto) % Baso % (Auto) % Neut # (Auto) (1.4-6.5) K/uL Lymph # (Auto) (1.2-3.4) K/uL Snyder # (Auto) (0.11-0.59) K/uL Eos # (Auto) (0-0.5) K/uL Baso # (Auto) (0-0.2) K/uL Immature Gran # (Auto) (0.00-0.02) K/uL Sodium (136-145) mmol/L Potassium (3.5-5.1) mmol/L Chloride (98-107) mmol/L Carbon Dioxide (21-32) mmol/L Anion Gap (3-11) BUN (7-18) mg/dl Creatinine (0.6-1.2) mg/dl Est Cr Clr Drug Dosing ml/min Est GFR ( Amer) ml/min Est GFR (Non-Af Amer) ml/min BUN/Creatinine Ratio (10-20) Glucose (70-99) mg/dl Calcium (8.5-10.1) mg/dl Total Bilirubin (0.2-1) mg/dl AST (15-37) U/L ALT (12-78) U/L Alkaline Phosphatase (45-117) U/L Lactate Dehydrogenase 165 (84-246) U/L Total Protein (6.4-8.2) gm/dl Albumin (3.4-5.0) gm/dl Globulin (2.5-4.0) gm/dl Albumin/Globulin Ratio (0.9-2) Urine Color Yellow Urine Appearance Clear (Clear) Urine pH 7.0 (4.5-7.5) Ur Specific [place] 1.013 (1.000-1.030) Urine Protein 1+ H (Negative) Urine Glucose (UA) Negative (Negative) Urine Ketones Negative (Negative) Urine Blood 1+ H (Negative) Urine Nitrite Negative (Negative) Urine Bilirubin Negative (Negative) Urine Urobilinogen Negative (Negative) Ur Leukocyte Esterase Negative (Negative) Urine WBC (Auto) 1-5 (0-5) /hpf Urine RBC (Auto) 10-30 H (0-4) /hpf U Hyaline Cast (Auto) 0 (0-5) /lpf U Epithel Cells (Auto) 20-30 H (0-5) /lpf Urine Bacteria (Auto) Negative (Negative) Ur Random Creatinine 56.4 mg/dl U Random Total Protein 67.9 H (0-11.9) mg/dl Protein/Creatinin Ratio 1.2 H (0-0.2) COVID-19 Eval Order SARS-CoV-2, RNA, NAAT (NEGATIVE) 01/23/21 01/24/21 01/24/21 Range/Units 06:04 05:56 07:52 WBC 11.55 H 9.38 (4.8-10.8) K/uL RBC 4.21 3.64 L (4.2-5.4) M/uL Hgb 12.2 11.1 L 10.7 L (12.0-16.0) g/dL Hct 36.7 L 34.4 L 32.7 L (37-47) % MCV 87.2 89.8 (80-100) fL MCH 29.0 29.4 (25-34) pg MCHC 33.2 32.7 (32-36) g/dL RDW Std Deviation 49.9 H 53.3 H (36.4-46.3) fL RDW Coeff of Kyle 15.9 H 16.2 H (11.5-14.5) % Plt Count 276 256 (130-400) K/uL MPV 11.1 H 10.7 H (7.4-10.4) fL Immature Gran % (Auto) 0.2 % Neut % (Auto) 71.3 % Lymph % (Auto) 22.0 % Snyder % (Auto) 4.6 % Eos % (Auto) 1.7 % Baso % (Auto) 0.2 % Neut # (Auto) 6.69 H (1.4-6.5) K/uL Lymph # (Auto) 2.06 (1.2-3.4) K/uL Snyder # (Auto) 0.43 (0.11-0.59) K/uL Eos # (Auto) 0.16 (0-0.5) K/uL Baso # (Auto) 0.02 (0-0.2) K/uL Immature Gran # (Auto) 0.02 (0.00-0.02) K/uL Sodium (136-145) mmol/L Potassium (3.5-5.1) mmol/L Chloride (98-107) mmol/L Carbon Dioxide (21-32) mmol/L Anion Gap (3-11) BUN (7-18) mg/dl Creatinine (0.6-1.2) mg/dl Est Cr Clr Drug Dosing ml/min Est GFR ( Amer) ml/min Est GFR (Non-Af Amer) ml/min BUN/Creatinine Ratio (10-20) Glucose (70-99) mg/dl Calcium (8.5-10.1) mg/dl Total Bilirubin (0.2-1) mg/dl AST (15-37) U/L ALT (12-78) U/L Alkaline Phosphatase (45-117) U/L Lactate Dehydrogenase (84-246) U/L Total Protein (6.4-8.2) gm/dl Albumin (3.4-5.0) gm/dl Globulin (2.5-4.0) gm/dl Albumin/Globulin Ratio (0.9-2) Urine Color Urine Appearance (Clear) Urine pH (4.5-7.5) Ur Specific [place] (1.000-1.030) Urine Protein (Negative) Urine Glucose (UA) (Negative) Urine Ketones (Negative) Urine Blood (Negative) Urine Nitrite (Negative) Urine Bilirubin (Negative) Urine Urobilinogen (Negative) Ur Leukocyte Esterase (Negative) Urine WBC (Auto) (0-5) /hpf Urine RBC (Auto) (0-4) /hpf U Hyaline Cast (Auto) (0-5) /lpf U Epithel Cells (Auto) (0-5) /lpf Urine Bacteria (Auto) (Negative) Ur Random Creatinine mg/dl U Random Total Protein (0-11.9) mg/dl Protein/Creatinin Ratio (0-0.2) COVID-19 Eval Order SARS-CoV-2, RNA, NAAT (NEGATIVE) CMP for this morning is pending PE: General: Alert, orientedx3, NAD Abd: soft, NT, fundus firm, below Umbilicus Perineum intact, Lochia rubra minimal Ext; NT, no edema, No clonus BL AP: 35 yo s/p ,IOL for preeclampsia with severe features, s/p IV magnesium sulfate, ppd# 2 Elevated BP 's with Labetalol 200 mg tid and Procardia XL once a day Asymptomatic, normal labs Plan to increase Procardia to bid Continue routine care All questions were answered D/C home when BP's stable Results & Data ([facility]) Vital Signs (Past 12 Hours) Vital Signs Temp Pulse Resp BP 01/24/21 06:27 96 H 178/107 H 01/24/21 05:30 36.7 C 83 18 182/116 H 01/24/21 02:10 75 159/95 H 01/24/21 00:15 36.8 C 76 18 166/103 H 01/23/21 22:20 153/94 H
[2021-01-24] MEDS: NIFEdipine EXTENDED REL 30 MG TABCR PO SCH ×2 (08:28→20:20)
[2021-01-24] MEDS: LABETALOL HCL 200 MG TAB PO SCH ×3 (08:28→20:20)
[2021-01-24 08:32] LABS: Alanine Aminotransferase 23 U/L (12-78); Albumin Globulin Ratio 0.6 (0.9-2); Albumin Level 2.2 gm/dl (3.4-5.0); Alkaline Phosphatase 108 U/L (45-117); BUN Creatinine Ratio 13.8 (10-20); Bilirubin,Total 0.2 mg/dl (0.2-1); Blood Urea Nitrogen 11 mg/dl (7-18); Carbon Dioxide 23 mmol/L (21-32); Chloride 110 mmol/L (98-107); Creatinine Clr Calc Pharmacy 127.3 ml/min; Est GFR (African American) 107.5 ml/min; Est GFR (Non-African American) 92.8 ml/min; Globulin 3.7 gm/dl (2.5-4.0); Glucose 80 mg/dl (70-99); Sodium 138 mmol/L (136-145); Total Protein 5.9 gm/dl (6.4-8.2)
[2021-01-24 09:17] LABS: Potassium 4.2 mmol/L (3.5-5.1)
[2021-01-24] MEDS: SERTRALINE HCL 100 MG TABLET PO SCH (09:32)
[2021-01-24] MEDS ORDERED: hydrALAZINE HCL 20 MG/ML VIAL IM STA (14:01)
[2021-01-24] MEDS ORDERED: hydrALAZINE HCL 20 MG/ML VIAL IV STA (14:43)
--- NOTE | 2021-01-24 15:00 | Consultation ---
Date of Consultation January 24, 2021 Assessment & Plan (1) Elevated blood pressure reading: Pt is 35 y/o F with PMH hypothyroidism, anxiety, depression, migraine, gestational HTN seen in consultation for HTN. Patient with gestational hypertension during and was on labetalol 200mg BID. She developed preeclampsia, had elevated BP readings and protein in urine and was induced and delivered on 01/22/2021. During hospital course patient had initially received IV hydralazine, and now on labetalol 200 mg 3 times daily, Procardia XL 30 mg twice daily. Intermittent headache reported. Denies any current headache. Denies shortness of breath, chest pain, vision changes BP 182/116 Patient was given hydralazine 5 mg IV. Post medication BP reading in right arm: 145/88, BP reading in left arm: 150/92 Continue oral labetalol, nifedipine Will start hydralazine 25 mg p.o. 3 times daily Monitor BP Will need close follow up with PCP upon discharge (2) Hypothyroid: Continue levothyroxine (3) Anxiety: Continue sertraline DVT Prophylaxis -Ambulate Disposition per primary team Follows with Dr Chandra for routine care Pt was seen and care coordinated with Dr Murillo. See addendum Supervising Physician Co-Signing Physician Notes 35 y/o F with PMH of hypothyroidism, anxiety, depression, migraine, gestational HTN was consulted for difficult to control hypertension. Enter first almost 6 years ago, she was diagnosed with gestational hypertension and was free of blood pressure medication in between the . During the second , she was again diagnosed with gestational hypertension and was started on antihypertensive which were sent to the point of severe preeclampsia and patient is having hypertension . She did complain of headache but believes it mostly due to her lying down in bed. Patient made aware if headache comes or there is increased leg swelling, she nurse to bring it to immediate attention to her PCP/emergency. Patient was already on labetalol and Procardia, will add hydralazine 25 mg 3 times daily, if needed uptitrate the dose. Patient needs close follow-up for blood pressure management with PCP after discharge. Upon examination: GENERAL: Status post , alert and oriented x3. NAD, on RA. HEENT: No pallor, no icterus. Pupils equal, round and reactive to light. Oral mucosa moist. NECK: No JVD, no neck masses. HEART: S1 and S2 heard. Regular rate and rhythm. No murmur, no gallop. RESPIRATORY SYSTEM: Normal AP diameter. No accessory muscle use. No wheezing, no crackles. ABDOMEN: Soft, bowel sounds present, nontender, no distention. CENTRAL NERVOUS SYSTEM: Alert and oriented x3. No facial droop. Speech is clear. Obeys simple commands. Moves extremities. EXTREMITIES: No edema, no erythema seen. I have seen and examined the patient and have discussed the case with the provider above. I agree with the assessment and plan as stated. History of Present Illness Requesting Physician: Dr Merrill Reason for Consultation: HTN Attending Physician: Sofy Merrill MD History of Present Illness Pt is 35 y/o F with PMH hypothyroidism, anxiety, depression, migraine, gestational HTN seen in consultation for HTN. Patient with gestational hypertension during and was on labetalol 200mg BID. She developed preeclampsia, had elevated BP readings and protein in urine and was induced and delivered on 01/22/2021. During hospital course patient had initially received IV hydralazine and IV magnesium. She is continued to be hypertensive. Currently on labetalol 200 mg 3 times daily and Procardia XL 30 mg twice daily. She reports intermittent mild headache. Denies any current headache. Denies shortness of breath, chest pain, lower extremity edema. She reports h/o gestastional HTN with first and had normal BP upon recheck and did not require BP medications. Denies fever/chills, diaphoresis, N/V/D/C, dizziness, syncope, vision changes, neck pain, palpitations, cough, sore throat, choking, otalgia, rhinorrhea, abdominal pain, paresthesias, weakness, extremity edema, rashes, urinary symptoms. Allergies Allergy/AdvReac Type Severity Reaction Status Date / Time No Known Allergies Allergy Unverified 11/15/14 13:51 Home Medications Medication Instructions Recorded Confirmed Type Multivit/Min/Iron/Fol Ac/Pren 1 tab PO DAILY #0 tab 11/15/14 01/22/21 History ( Vitamin) Sertraline (Zoloft) 100 mg PO DAILY #0 tab 11/15/14 01/22/21 History labetalol 100 mg tablet 200 mg PO BID 01/07/21 01/22/21 History levothyroxine 25 mcg tablet 25 mcg PO DAILY 01/07/21 01/22/21 History labetalol 200 mg tablet 200 mg PO TID #90 tab 01/24/21 Rx nifedipine 30 mg tablet,extended 30 mg PO BID #60 tab 01/24/21 Rx release 24 hr (Procardia XL) vits no.124-ferrous fum 1 tab PO DAILY@08 #90 tab 01/24/21 Rx 27 mg iron-folic acid 800 mcg tablet ( Vitamin) Patient History Medical History Anxiety Depression Gestational hypertension Hypothyroid Migraines Obesity Vitamin D deficiency Surgical History History of mandibular surgery History of mandibular surgery Social History Smoking Status: Never smoker Hx Alcohol Use: No Hx Substance Use: No Preferred Language: [place] Island[place] Communication Ability: Effective Beliefs That Will Affect Care: None marital status: marital status details: Adalberto Current Living Situation: Family Current Living Situation Comment: Lives with and 6 yo son current occupational status: employed current occupation: [employer] Other Information That Helps Us Care for You: No Feels Safe at Home: Yes Safety Concerns: Feels Safe At This Time Dental Care, Regularly: Yes Assistive Devices: None Review of Systems Review of Systems: All systems reviewed & are unremarkable except as noted in HPI & below Physical Exam Physical Exam: General: no distress, WDWN Head: normocephalic, atraumatic Eyes: conjunctiva non-injected, anicteric ENT: normal inspection external ears, nose, mucous membranes moist Neck: supple, trachea midline Lungs: clear, no respiratory distress, no wheezing/rhonchi/rales CV: RRR, no murmur, no pretibial edema Abd: normal BS, soft, non-tender Ext: no cyanosis, no calf tenderness Neuro: A&O x 3, no focal deficits noted, normal affect Skin: warm, dry Results & Data ([facility]) Vital Signs (Past 12 Hours) Vital Signs Temp Pulse Resp BP BP Pulse Ox 01/24/21 13:44 89 158/111 H 01/24/21 11:50 37.1 C 79 18 155/93 H 150/90 H 98 01/24/21 09:30 144/89 H 01/24/21 09:00 158/101 H 158/85 H 01/24/21 07:35 37 C 79 16 165/102 H 149/97 H 97 01/24/21 06:27 96 H 178/107 H 01/24/21 05:30 36.7 C 83 18 182/116 H Laboratory Results Short CBC 01/24/21 01/24/21 Range/Units 05:56 07:52 WBC 9.38 (4.8-10.8) K/uL Hgb 11.1 L 10.7 L (12.0-16.0) g/dL Hct 34.4 L 32.7 L (37-47) % Plt Count 256 (130-400) K/uL BMP 01/24/21 01/24/21 07:52 08:54 Sodium 138 Potassium TNP 4.2 Chloride 110 H Carbon Dioxide 23 BUN 11 Creatinine 0.81 Glucose 80 Calcium 8.0 L Liver Function 01/24/21 01/24/21 Range/Units 07:52 08:54 Total Bilirubin 0.2 (0.2-1) mg/dl AST 15 (15-37) U/L ALT 23 (12-78) U/L Alkaline Phosphatase 108 (45-117) U/L Albumin 2.2 L (3.4-5.0) gm/dl
--- NOTE | 2021-01-24 16:43 | Obstetrical Progress Note ---
Date of Service January 24, 2021 Assessment & Plan Admission and Anticipated Discharge Date Admission Date: January 22, 2021 Subjective Patient is reevaluated She feels well, no complaints Medicine saw her and Rx Hydralazine 25 mg tid Will observe overnight and d/c tomorrow Results & Data ([facility]) Vital Signs (Past 12 Hours) Vital Signs Temp Pulse Resp BP BP Pulse Ox 01/24/21 15:10 36.6 C 84 16 150/92 H 145/88 H 98 01/24/21 13:44 89 158/111 H 01/24/21 11:50 37.1 C 79 18 155/93 H 150/90 H 98 01/24/21 09:30 144/89 H 01/24/21 09:00 158/101 H 158/85 H 01/24/21 07:35 37 C 79 16 165/102 H 149/97 H 97 01/24/21 06:27 96 H 178/107 H 01/24/21 05:30 36.7 C 83 18 182/116 H
[2021-01-24] MEDS: ACETAMINOPHEN 325 MG TAB PO PRN ×2 (17:54→23:06)
[2021-01-24] MEDS: hydrALAZINE HCL 25 MG TAB PO SCH (20:19)
[2021-01-24] MEDS ORDERED: hydrALAZINE HCL 25 MG TAB PO SCH (21:00)
[2021-01-24] MEDS ORDERED: FUROSEMIDE 20 MG TAB PO ONE (23:50)
[2021-01-25] MEDS: LEVOTHYROXINE SODIUM 25 MCG TABLET PO SCH (06:02)
[2021-01-25] MEDS: PRENATAL VITAMIN 1 TAB PO SCH (08:21)
[2021-01-25] MEDS: DOCUSATE SODIUM 100 MG CAP PO SCH (08:21)
[2021-01-25] MEDS: BENZOCAINE 20% AER SPR 82.5 GM CAN EXT PRN (08:21)
[2021-01-25] MEDS: FERROUS SULFATE 325 MG TAB PO SCH (08:21)
[2021-01-25] MEDS: SERTRALINE HCL 100 MG TABLET PO SCH (08:22)
[2021-01-25] MEDS: NIFEdipine EXTENDED REL 30 MG TABCR PO SCH (08:22)
[2021-01-25] MEDS: hydrALAZINE HCL 25 MG TAB PO SCH (08:23)
[2021-01-25] MEDS: LABETALOL HCL 200 MG TAB PO SCH (08:23)
--- NOTE | 2021-01-25 10:44 | Obstetrical Progress Note ---
Date of Service January 25, 2021 Assessment & Plan Admission and Anticipated Discharge Date Admission Date: January 22, 2021 Subjective Patient is seen and examined. She feels well, no complaints. Ambulating without dizziness Voiding without difficulty Tolerating regular diet with out N&V Bleeding is minimal No KYLE/ Change in vision/ fever/ chills/ CP/ SOB/ N&V/ Leg pain Breast and bottle feeding without problems Vital Signs Temp Pulse Resp BP BP Pulse Ox 01/25/21 09:37 135/83 01/25/21 07:40 37.0 C 84 16 154/106 H 01/25/21 03:45 36.9 C 83 18 146/89 H 98 01/24/21 23:00 36.9 C 80 18 165/105 H 155/100 H 97 01/24/21 19:30 167/91 H 01/24/21 19:14 37.2 C 89 16 164/109 H 97 01/24/21 18:40 153/95 H 01/24/21 17:53 158/90 H 01/24/21 15:10 36.6 C 84 16 150/92 H 145/88 H 98 01/24/21 13:44 89 158/111 H 01/24/21 11:50 37.1 C 79 18 155/93 H 150/90 H 98 Lab Results 01/22/21 01/22/21 01/22/21 Range/Units 07:54 07:54 08:07 WBC 7.90 (4.8-10.8) K/uL RBC 4.16 L (4.2-5.4) M/uL Hgb 12.2 (12.0-16.0) g/dL Hct 36.7 L (37-47) % MCV 88.2 (80-100) fL MCH 29.3 (25-34) pg MCHC 33.2 (32-36) g/dL RDW Std Deviation 49.9 H (36.4-46.3) fL RDW Coeff of Kyle 15.6 H (11.5-14.5) % Plt Count 274 (130-400) K/uL MPV 11.2 H (7.4-10.4) fL Immature Gran % (Auto) % Neut % (Auto) % Lymph % (Auto) % [place] % (Auto) % Eos % (Auto) % Baso % (Auto) % Neut # (Auto) (1.4-6.5) K/uL Lymph # (Auto) (1.2-3.4) K/uL [place] # (Auto) (0.11-0.59) K/uL Eos # (Auto) (0-0.5) K/uL Baso # (Auto) (0-0.2) K/uL Immature Gran # (Auto) (0.00-0.02) K/uL Sodium (136-145) mmol/L Potassium (3.5-5.1) mmol/L Chloride (98-107) mmol/L Carbon Dioxide (21-32) mmol/L Anion Gap (3-11) BUN (7-18) mg/dl Creatinine (0.6-1.2) mg/dl Est Cr Clr Drug Dosing ml/min Est GFR ( Amer) ml/min Est GFR (Non-Af Amer) ml/min BUN/Creatinine Ratio (10-20) Glucose (70-99) mg/dl Calcium (8.5-10.1) mg/dl Total Bilirubin (0.2-1) mg/dl AST (15-37) U/L ALT (12-78) U/L Alkaline Phosphatase (45-117) U/L Lactate Dehydrogenase (84-246) U/L Total Protein (6.4-8.2) gm/dl Albumin (3.4-5.0) gm/dl Globulin (2.5-4.0) gm/dl Albumin/Globulin Ratio (0.9-2) Urine Color Urine Appearance (Clear) Urine pH (4.5-7.5) Ur Specific [place] (1.000-1.030) Urine Protein (Negative) Urine Glucose (UA) (Negative) Urine Ketones (Negative) Urine Blood (Negative) Urine Nitrite (Negative) Urine Bilirubin (Negative) Urine Urobilinogen (Negative) Ur Leukocyte Esterase (Negative) Urine WBC (Auto) (0-5) /hpf Urine RBC (Auto) (0-4) /hpf U Hyaline Cast (Auto) (0-5) /lpf U Epithel Cells (Auto) (0-5) /lpf Urine Bacteria (Auto) (Negative) Ur Random Creatinine mg/dl U Random Total Protein (0-11.9) mg/dl Protein/Creatinin Ratio (0-0.2) COVID-19 Eval Order Covid19 IDNow atMRIC SARS-CoV-2, RNA, NAAT NEGATIVE (NEGATIVE) 01/22/21 01/22/21 01/22/21 Range/Units 08:07 17:29 17:29 WBC 11.64 H (4.8-10.8) K/uL RBC 4.21 (4.2-5.4) M/uL Hgb 12.5 (12.0-16.0) g/dL Hct 36.6 L (37-47) % MCV 86.9 (80-100) fL MCH 29.7 (25-34) pg MCHC 34.2 (32-36) g/dL RDW Std Deviation 49.9 H (36.4-46.3) fL RDW Coeff of Kyle 16.0 H (11.5-14.5) % Plt Count 290 (130-400) K/uL MPV 11.3 H (7.4-10.4) fL Immature Gran % (Auto) 0.2 % Neut % (Auto) 77.9 % Lymph % (Auto) 12.9 % [place] % (Auto) 8.3 % Eos % (Auto) 0.5 % Baso % (Auto) 0.2 % Neut # (Auto) 9.07 H (1.4-6.5) K/uL Lymph # (Auto) 1.50 (1.2-3.4) K/uL [place] # (Auto) 0.97 H (0.11-0.59) K/uL Eos # (Auto) 0.06 (0-0.5) K/uL Baso # (Auto) 0.02 (0-0.2) K/uL Immature Gran # (Auto) 0.02 (0.00-0.02) K/uL Sodium 136 138 (136-145) mmol/L Potassium 3.8 4.3 (3.5-5.1) mmol/L Chloride 108 H 110 H (98-107) mmol/L Carbon Dioxide 18 L 18 L (21-32) mmol/L Anion Gap 10.0 10.0 (3-11) BUN 10 10 (7-18) mg/dl Creatinine 0.79 0.72 (0.6-1.2) mg/dl Est Cr Clr Drug Dosing 130.6 143.3 ml/min Est GFR ( Amer) 110.8 124.0 ml/min Est GFR (Non-Af Amer) 95.6 107.0 ml/min BUN/Creatinine Ratio 12.4 13.4 (10-20) Glucose 137 H 81 (70-99) mg/dl Calcium 9.4 8.6 (8.5-10.1) mg/dl Total Bilirubin 0.2 0.2 (0.2-1) mg/dl AST 18 16 (15-37) U/L ALT 27 26 (12-78) U/L Alkaline Phosphatase 132 H 135 H (45-117) U/L Lactate Dehydrogenase (84-246) U/L Total Protein 6.5 6.4 (6.4-8.2) gm/dl Albumin 2.5 L 2.5 L (3.4-5.0) gm/dl Globulin 4.0 3.9 (2.5-4.0) gm/dl Albumin/Globulin Ratio 0.6 L 0.6 L (0.9-2) Urine Color Urine Appearance (Clear) Urine pH (4.5-7.5) Ur Specific [place] (1.000-1.030) Urine Protein (Negative) Urine Glucose (UA) (Negative) Urine Ketones (Negative) Urine Blood (Negative) Urine Nitrite (Negative) Urine Bilirubin (Negative) Urine Urobilinogen (Negative) Ur Leukocyte Esterase (Negative) Urine WBC (Auto) (0-5) /hpf Urine RBC (Auto) (0-4) /hpf U Hyaline Cast (Auto) (0-5) /lpf U Epithel Cells (Auto) (0-5) /lpf Urine Bacteria (Auto) (Negative) Ur Random Creatinine mg/dl U Random Total Protein (0-11.9) mg/dl Protein/Creatinin Ratio (0-0.2) COVID-19 Eval Order SARS-CoV-2, RNA, NAAT (NEGATIVE) 01/22/21 01/22/21 01/22/21 Range/Units 17:29 17:56 17:56 WBC (4.8-10.8) K/uL RBC (4.2-5.4) M/uL Hgb (12.0-16.0) g/dL Hct (37-47) % MCV (80-100) fL MCH (25-34) pg MCHC (32-36) g/dL RDW Std Deviation (36.4-46.3) fL RDW Coeff of Kyle (11.5-14.5) % Plt Count (130-400) K/uL MPV (7.4-10.4) fL Immature Gran % (Auto) % Neut % (Auto) % Lymph % (Auto) % [place] % (Auto) % Eos % (Auto) % Baso % (Auto) % Neut # (Auto) (1.4-6.5) K/uL Lymph # (Auto) (1.2-3.4) K/uL [place] # (Auto) (0.11-0.59) K/uL Eos # (Auto) (0-0.5) K/uL Baso # (Auto) (0-0.2) K/uL Immature Gran # (Auto) (0.00-0.02) K/uL Sodium (136-145) mmol/L Potassium (3.5-5.1) mmol/L Chloride (98-107) mmol/L Carbon Dioxide (21-32) mmol/L Anion Gap (3-11) BUN (7-18) mg/dl Creatinine (0.6-1.2) mg/dl Est Cr Clr Drug Dosing ml/min Est GFR ( Amer) ml/min Est GFR (Non-Af Amer) ml/min BUN/Creatinine Ratio (10-20) Glucose (70-99) mg/dl Calcium (8.5-10.1) mg/dl Total Bilirubin (0.2-1) mg/dl AST (15-37) U/L ALT (12-78) U/L Alkaline Phosphatase (45-117) U/L Lactate Dehydrogenase 165 (84-246) U/L Total Protein (6.4-8.2) gm/dl Albumin (3.4-5.0) gm/dl Globulin (2.5-4.0) gm/dl Albumin/Globulin Ratio (0.9-2) Urine Color Yellow Urine Appearance Clear (Clear) Urine pH 7.0 (4.5-7.5) Ur Specific [place] 1.013 (1.000-1.030) Urine Protein 1+ H (Negative) Urine Glucose (UA) Negative (Negative) Urine Ketones Negative (Negative) Urine Blood 1+ H (Negative) Urine Nitrite Negative (Negative) Urine Bilirubin Negative (Negative) Urine Urobilinogen Negative (Negative) Ur Leukocyte Esterase Negative (Negative) Urine WBC (Auto) 1-5 (0-5) /hpf Urine RBC (Auto) 10-30 H (0-4) /hpf U Hyaline Cast (Auto) 0 (0-5) /lpf U Epithel Cells (Auto) 20-30 H (0-5) /lpf Urine Bacteria (Auto) Negative (Negative) Ur Random Creatinine 56.4 mg/dl U Random Total Protein 67.9 H (0-11.9) mg/dl Protein/Creatinin Ratio 1.2 H (0-0.2) COVID-19 Eval Order SARS-CoV-2, RNA, NAAT (NEGATIVE) 01/23/21 01/24/21 01/24/21 Range/Units 06:04 05:56 07:52 WBC 11.55 H 9.38 (4.8-10.8) K/uL RBC 4.21 3.64 L (4.2-5.4) M/uL Hgb 12.2 11.1 L 10.7 L (12.0-16.0) g/dL Hct 36.7 L 34.4 L 32.7 L (37-47) % MCV 87.2 89.8 (80-100) fL MCH 29.0 29.4 (25-34) pg MCHC 33.2 32.7 (32-36) g/dL RDW Std Deviation 49.9 H 53.3 H (36.4-46.3) fL RDW Coeff of Kyle 15.9 H 16.2 H (11.5-14.5) % Plt Count 276 256 (130-400) K/uL MPV 11.1 H 10.7 H (7.4-10.4) fL Immature Gran % (Auto) 0.2 % Neut % (Auto) 71.3 % Lymph % (Auto) 22.0 % [place] % (Auto) 4.6 % Eos % (Auto) 1.7 % Baso % (Auto) 0.2 % Neut # (Auto) 6.69 H (1.4-6.5) K/uL Lymph # (Auto) 2.06 (1.2-3.4) K/uL [place] # (Auto) 0.43 (0.11-0.59) K/uL Eos # (Auto) 0.16 (0-0.5) K/uL Baso # (Auto) 0.02 (0-0.2) K/uL Immature Gran # (Auto) 0.02 (0.00-0.02) K/uL Sodium (136-145) mmol/L Potassium (3.5-5.1) mmol/L Chloride (98-107) mmol/L Carbon Dioxide (21-32) mmol/L Anion Gap (3-11) BUN (7-18) mg/dl Creatinine (0.6-1.2) mg/dl Est Cr Clr Drug Dosing ml/min Est GFR ( Amer) ml/min Est GFR (Non-Af Amer) ml/min BUN/Creatinine Ratio (10-20) Glucose (70-99) mg/dl Calcium (8.5-10.1) mg/dl Total Bilirubin (0.2-1) mg/dl AST (15-37) U/L ALT (12-78) U/L Alkaline Phosphatase (45-117) U/L Lactate Dehydrogenase (84-246) U/L Total Protein (6.4-8.2) gm/dl Albumin (3.4-5.0) gm/dl Globulin (2.5-4.0) gm/dl Albumin/Globulin Ratio (0.9-2) Urine Color Urine Appearance (Clear) Urine pH (4.5-7.5) Ur Specific [place] (1.000-1.030) Urine Protein (Negative) Urine Glucose (UA) (Negative) Urine Ketones (Negative) Urine Blood (Negative) Urine Nitrite (Negative) Urine Bilirubin (Negative) Urine Urobilinogen (Negative) Ur Leukocyte Esterase (Negative) Urine WBC (Auto) (0-5) /hpf Urine RBC (Auto) (0-4) /hpf U Hyaline Cast (Auto) (0-5) /lpf U Epithel Cells (Auto) (0-5) /lpf Urine Bacteria (Auto) (Negative) Ur Random Creatinine mg/dl U Random Total Protein (0-11.9) mg/dl Protein/Creatinin Ratio (0-0.2) COVID-19 Eval Order SARS-CoV-2, RNA, NAAT (NEGATIVE) 01/24/21 01/24/21 Range/Units 07:52 08:54 WBC (4.8-10.8) K/uL RBC (4.2-5.4) M/uL Hgb (12.0-16.0) g/dL Hct (37-47) % MCV (80-100) fL MCH (25-34) pg MCHC (32-36) g/dL RDW Std Deviation (36.4-46.3) fL RDW Coeff of Kyle (11.5-14.5) % Plt Count (130-400) K/uL MPV (7.4-10.4) fL Immature Gran % (Auto) % Neut % (Auto) % Lymph % (Auto) % [place] % (Auto) % Eos % (Auto) % Baso % (Auto) % Neut # (Auto) (1.4-6.5) K/uL Lymph # (Auto) (1.2-3.4) K/uL [place] # (Auto) (0.11-0.59) K/uL Eos # (Auto) (0-0.5) K/uL Baso # (Auto) (0-0.2) K/uL Immature Gran # (Auto) (0.00-0.02) K/uL Sodium 138 (136-145) mmol/L Potassium TNP 4.2 (3.5-5.1) mmol/L Chloride 110 H (98-107) mmol/L Carbon Dioxide 23 (21-32) mmol/L Anion Gap 5.0 (3-11) BUN 11 (7-18) mg/dl Creatinine 0.81 (0.6-1.2) mg/dl Est Cr Clr Drug Dosing 127.3 ml/min Est GFR ( Amer) 107.5 ml/min Est GFR (Non-Af Amer) 92.8 ml/min BUN/Creatinine Ratio 13.8 (10-20) Glucose 80 (70-99) mg/dl Calcium 8.0 L (8.5-10.1) mg/dl Total Bilirubin 0.2 (0.2-1) mg/dl AST 15 (15-37) U/L ALT 23 (12-78) U/L Alkaline Phosphatase 108 (45-117) U/L Lactate Dehydrogenase (84-246) U/L Total Protein 5.9 L (6.4-8.2) gm/dl Albumin 2.2 L (3.4-5.0) gm/dl Globulin 3.7 (2.5-4.0) gm/dl Albumin/Globulin Ratio 0.6 L (0.9-2) Urine Color Urine Appearance (Clear) Urine pH (4.5-7.5) Ur Specific [place] (1.000-1.030) Urine Protein (Negative) Urine Glucose (UA) (Negative) Urine Ketones (Negative) Urine Blood (Negative) Urine Nitrite (Negative) Urine Bilirubin (Negative) Urine Urobilinogen (Negative) Ur Leukocyte Esterase (Negative) Urine WBC (Auto) (0-5) /hpf Urine RBC (Auto) (0-4) /hpf U Hyaline Cast (Auto) (0-5) /lpf U Epithel Cells (Auto) (0-5) /lpf Urine Bacteria (Auto) (Negative) Ur Random Creatinine mg/dl U Random Total Protein (0-11.9) mg/dl Protein/Creatinin Ratio (0-0.2) COVID-19 Eval Order SARS-CoV-2, RNA, NAAT (NEGATIVE) PE: General: Alert, orientedx3, NAD CVS: S1S2 RRR Lungs; CTAB Abd: soft, NT, fundus firm, below Umbilicus Perineum intact, Lochia rubra minimal Ext; NT, no edema AP: 35 yo s/p , ppd# 3, IOL for preeclampsia with severe features ( severe ranfge of BP), s/p IV Mag sulfate BP's better after 1 dose of lasix last night Medicine is okay for her d/c with current meds and f/ui with PCP in a week Afebrile doing well Discussed home BP measurements and when to call and go to ER All questions were answered D/C home , fu with PCP and OB in a week Results & Data ([facility]) Vital Signs (Past 12 Hours) Vital Signs Temp Pulse Resp BP BP Pulse Ox 01/25/21 09:37 135/83 01/25/21 07:40 37.0 C 84 16 154/106 H 01/25/21 03:45 36.9 C 83 18 146/89 H 98 01/24/21 23:00 36.9 C 80 18 165/105 H 155/100 H 97
--- NOTE | 2021-01-25 11:59 | Hospitalist Progress Note ---
Date of Service January 25, 2021 Assessment & Plan (1) hypertension: Plan: 35 y/o F with PMH of hypothyroidism, anxiety, depression, migraine, gestational HTN was consulted for difficult to control hypertension. With her first almost 6 years ago, she was diagnosed with gestational hypertension and was free of blood pressure medication in between the . During the second , she was again diagnosed with gestational hypertension and was started on antihypertensive which progressed to the point of severe preeclampsia and patient is having hypertension . At bedside exam, today she did not complain of any headache or any leg swelling. No issues overnight. Patient made aware if headache comes/worsens or there is increased leg swelling, she has to bring it to immediate attention to her PCP/emergency. Patient was already on labetalol and Procardia, will add hydralazine 25 mg 3 times daily,. Patient needs close follow-up for blood pressure management with PCP after discharge. Admission and Anticipated Discharge Date Admission Date: January 22, 2021 Subjective Patient was sitting up in bed, room air, NAD. No issues overnight. Denies headache/leg swelling/other review of symptoms. Patient is eating and moving bowels okay. Physical Exam Physical Exam: GENERAL: Status post , alert and oriented x3. NAD, on RA. HEENT: No pallor, no icterus. Pupils equal, round and reactive to light. Oral mucosa moist. NECK: No JVD, no neck masses. HEART: S1 and S2 heard. Regular rate and rhythm. No murmur, no gallop. RESPIRATORY SYSTEM: Normal AP diameter. No accessory muscle use. No wheezing, no crackles. ABDOMEN: Soft, bowel sounds present, nontender, no distention. CENTRAL NERVOUS SYSTEM: Alert and oriented x3. No facial droop. Speech is clear. Obeys simple commands. Moves extremities. EXTREMITIES: No edema, no erythema seen. Results & Data Results & Data ([facility]) Vital Signs (Past 12 Hours) Vital Signs Temp Pulse Resp BP BP Pulse Ox 01/25/21 10:58 37.0 C 84 16 135/83 135/83 98 01/25/21 09:37 135/83 01/25/21 07:40 37.0 C 84 16 154/106 H 01/25/21 03:45 36.9 C 83 18 146/89 H 98
[2021-01-25] MEDS: ACETAMINOPHEN 325 MG TAB PO PRN (12:03)
== END 2021-01-25 12:13 | disposition home or self-care (01) | DRG 807 ==
LOC: 4S1 07:36 → 4S2 01-23 19:22